=== PATIENT | male | born 1995 | race Caucasian/White ===

== ENCOUNTER 2018-05-23 19:12 | Emergency (ER) | payer SELFPAY ==
[~2018-05-23] VITALS: Ht 182.9 cm; Wt 128.6 kg
[2018-05-23 19:13] VITALS: Ht 182.9 cm; Wt 128.6 kg
[2018-05-23] MEDS ORDERED: NORCO 5/325 TAB1 TAB PO (20:44)
[2018-05-23 21:27] VITALS: BP 145/88
== END 2018-05-23 21:28 | disposition home or self-care (01) ==
LOC: D.ER 19:12
DX: S01.01XA Laceration without foreign body of scalp, initial encounter (principal); V43.52XA Car driver injured in collision with other type car in traffic accident, initial encounter; Y93.89 Activity, other specified; Y92.410 Unspecified street and highway as the place of occurrence of the external cause; M54.2 Cervicalgia; F17.200 Nicotine dependence, unspecified, uncomplicated